=== PATIENT | female | born 1935 | race Caucasian/White ===

== ENCOUNTER 2016-09-11 18:26 | Observation (INO) | payer OTHER ==
[2016-09-11 18:55] VITALS: BMI 25.0
--- NOTE | 2016-09-11 19:15 | PDOC ---
History of Present Illness - General History Source: Patient Exam Limitations: No Limitations - History of Present Illness Initial Comments: 09/11/16 19:37 The patient is a 81 year old female, with a significant past medical history of HTN who presents to the emergency department with constipation for about 2 days. The patient notes being unable to pass a bowel movement the past 2 days. She also notes having a decreased appetite. She denies recent fevers, chills, headache or dizziness. She denies recent nausea, vomit, or diarrhea. She denies recent dysuria, frequency, urgency or hematuria. She denies recent chest pain or shortness of breath. PAST MEDICAL HISTORY: See HPI PAST SURGICAL HISTORY: No significant history. FAMILY HISTORY: No pertinent history. SOCIAL HISTORY: Patient lives with family and is employed. MEDICATIONS: Reviewed. ALLERGIES: As per nursing notes. ROS General: No fevers or chills, no weakness, no weight loss HEENT: No change in vision. No sore throat. No ear pain CardioVascular: No chest pain or shortness of breath Respiratory:No cough, or wheezing. Gastrointestinal: + constipation. No nausea, vomiting, or diarrhea. No rectal bleeding Genitourinary: No dysuria, hematuria, or frequency Musculoskeletal: No joint or muscle pain or swelling Neurologic: No headache, vertigo, dizziness or loss of consciousness Psychiatric: No depression Skin: No rashes or easy bruising Endocrine: no increased thirst or abnormal weight change Allergic: no skin or latex allergy All other systems reviewed and normal Exam: General: Well-nourished well-developed individual, no acute distress HEENT: Throat: Normal, tonsils normal, no erythema or exudate Neck: Supple, no meningeal signs, no lymphadenopathy Eyes: Pupils equal reactive and round, extraocular motion intact Chest: Nontender to palpation Cardiac: S1-S2 normal, regular rate and rhythm, no murmurs rubs or gallops Respiratory: Lungs clear to auscultation bilateral Abdomen: Slightly distended. Soft, normal bowel sounds, nontender to palpation diffusely Extremities: Warm, dry, no cyanosis, clubbing, or edema Skin: No rashes Neuro: Alert and oriented x3, nonfocal exam, grossly intact, normal gait Psych: Normal mood and affect <Tyson Jorgensen - Last Filed: 09/11/16 19:37> - History of Present Illness Initial Comments: 09/11/16 22:54 A portion of this note was documented by scribe services under my direction. I have reviewed the details of the note, within reason, and agree with the documentation. The case summary and management plan written by me. Procedure note disimpacted Patient was disimpacted manually with a moderate amount of stool removed 09/12/16 00:15 Patient had soap suds emena X2 with minimal results. Patient will be admitted to an observation bed overnight for furthur laxatives and management. Discussed with Dr. Morataya <Yuko Perales I - Last Filed: 09/12/16 00:19> - General Chief Complaint: Constipation Stated Complaint: CONSTIPATION Time Seen by Provider: 09/11/16 19:14 Past History <Tyson Jorgensen - Last Filed: 09/11/16 19:37> - Past Medical History HTN: Yes - Psycho/Social/Smoking Cessation Hx Anxiety: No Suicidal Ideation: No Smoking History: Never smoked Have you smoked in the past 12 months: No Information on smoking cessation initiated: No Hx Alcohol Use: No Drug/Substance Use Hx: No Substance Use Type: None <Yuko Perales I - Last Filed: 09/12/16 00:19> - Past Medical History Allergies/Adverse Reactions: Allergies Allergy/AdvReac Type Severity Reaction Status Date / Time Penicillins Allergy Verified 09/11/16 18:28 Home Medications: Ambulatory Orders Nifedipine 09/11/16 *Physical Exam - Vital Signs Last Vital Signs Temp Pulse Resp BP Pulse Ox 98.3 F 78 20 134/57 96 09/11/16 18:27 09/11/16 18:27 09/11/16 18:27 09/11/16 18:27 09/11/16 18:27 <Tyson Jorgensen - Last Filed: 09/11/16 19:37> - Vital Signs Last Vital Signs Temp Pulse Resp BP Pulse Ox 98.3 F 78 20 134/57 96 09/11/16 18:27 09/11/16 18:27 09/11/16 18:27 09/11/16 18:27 09/11/16 18:27 <Yuko Perales I - Last Filed: 09/12/16 00:19> ED Treatment Course - LABORATORY CBC & Chemistry Diagram: 09/11/16 23:20 09/11/16 23:20 <Yuko Perales I - Last Filed: 09/12/16 00:19> *DC/Admit/Observation/Transfer - Attestations Scribe Attestion: 09/11/16 19:38 Documentation prepared by Tyson Jorgensen, acting as medical charge entry specialist for Yuko Perales MD. <Tyson Jorgensen - Last Filed: 09/11/16 19:37> - Discharge Dispostion Admit: Yes <Yuko Perales I - Last Filed: 09/12/16 00:19> Diagnosis at time of Disposition: Impaction of colon Constipation Qualifiers: Constipation type: unspecified constipation type Qualified Code(s): K59.00 - Constipation, unspecified - Referrals Referrals: Jassi Gifford [Primary Care Provider] -
[2016-09-11 23:34] LABS: BASOPHIL 0.5 % (0-2.0); EOSINOPHIL 0.8 % (0-4.5); MCHC 33.1 g/dl (32.0-36.0); MEAN CELL VOLUME 90.6 fl (80-96); NEUTROPHILS 67.7 % (42.8-82.8); PLATELET COUNT 219 K/MM3 (134-434); RDW 13.2 % (11.6-15.6); WHITE BLOOD COUNT 8.7 K/mm3 (4.0-10.8)
[2016-09-11 23:44] LABS: ALBUMIN 3.8 g/dl (3.5-5.0); ALK PHOS 54 U/L (32-92); ANION GAP 9 (8-16); BILIRUBIN,TOTAL 0.6 mg/dl (0.2-1.0); CALCIUM 9.1 mg/dl (8.4-10.2); CO2 27 mmol/L (22-28); CREATININE 0.7 mg/dl (0.6-1.3); GLUCOSE,RANDOM 94 mg/dl (74-106); SGOT/AST 19 U/L (10-42); SGPT/ALT 13 U/L (10-40); TOT PROT 6.8 g/dl (6.4-8.3)
[2016-09-12] MEDS ORDERED: LACTULOSE 20 GM/30 ML UDC (FOR ORAL USE ONLY) PO PRN (00:17)
[2016-09-12] MEDS ORDERED: DOCUSATE SODIUM 100 MG CAPSULE (FP) PO PRN (00:20)
[2016-09-12] MEDS ORDERED: MAGNESIUM CITRATE 300 ML BOTTLE ONE (00:20)
[2016-09-12] MEDS ORDERED: LACTULOSE 20 GM/30 ML UDC (FOR ORAL USE ONLY) PO ONE (00:21)
[2016-09-12] MEDS ORDERED: MAGNESIUM CITRATE 300 ML BOTTLE PO ONE (00:28)
[2016-09-12] MEDS ORDERED: LACTULOSE 20 GM/30 ML UDC (FOR ORAL USE ONLY) ONE (00:33)
[2016-09-12] MEDS ORDERED: ONDANSETRON 4 MG/2 ML VIAL IVPUSH PRN (06:17)
--- NOTE | 2016-09-12 08:56 | HP ---
[id number] 81 y/o female with a past medical history of hypertension. patient is a poor historian. She reports nausea, decreased appetitie and constipation for the past 3 days. patient denies any abdominal pain or fever. ER course was notable for: (1) xray flat and upright: constipation (2) digital disimpaction perfomed by ED physician (3) mag citrate and lactulose given in ED with no relief Recent Travel: none PAST MEDICAL HISTORY: hypertension PAST SURGICAL HISTORY: none Social History: pt is retired, reports she is homeless and she lives in a hotel Smoking: none Alcohol: none Drugs: none Family History: Allergies Penicillins Allergy (Verified 09/11/16 18:28) acid food allergy Adverse Reaction (Uncoded 09/12/16 07:06) anesthesia Adverse Reaction (Uncoded 09/12/16 07:06) rubber Adverse Reaction (Uncoded 09/12/16 07:06) HOME MEDICATIONS: Home Medications Medication Instructions Recorded Nifedipine 30 mg PO 09/11/16 REVIEW OF SYSTEMS CONSTITUTIONAL: Absent: fever, chills, diaphoresis, generalized weakness, malaise, loss of appetite, weight change HEENT: Absent: rhinorrhea, nasal congestion, throat pain, throat swelling, difficulty swallowing, mouth swelling, ear pain, eye pain, visual changes CARDIOVASCULAR: Absent: chest pain, syncope, palpitations, irregular heart rate, lightheadedness , peripheral edema RESPIRATORY: Absent: cough, shortness of breath, dyspnea with exertion, orthopnea, wheezing, stridor, hemoptysis GASTROINTESTINAL: Present: nausea, constipation Absent: abdominal pain, abdominal distension vomiting, diarrhea,, melena, hematochezia GENITOURINARY: Absent: dysuria, frequency, urgency, hesitancy, hematuria, flank pain, genital pain MUSCULOSKELETAL: Absent: myalgia, arthralgia, joint swelling, back pain, neck pain SKIN: Absent: rash, itching, pallor HEMATOLOGIC/IMMUNOLOGIC: Absent: easy bleeding, easy bruising, lymphadenopathy, frequent infections ENDOCRINE: Absent: unexplained weight gain, unexplained weight loss, heat intolerance, cold intolerance NEUROLOGIC: Absent: headache, focal weakness or paresthesias, dizziness, unsteady gait, seizure, mental status changes, bladder or bowel incontinence PSYCHIATRIC: Absent: anxiety, depression, suicidal or homicidal ideation, hallucinations. PHYSICAL EXAMINATION Vital Signs - 24 hr 09/12/16 09/12/16 09/12/16 01:55 01:57 06:00 Temperature 97.9 F 97.9 F Pulse Rate 75 64 Pulse Rate [ 61 Right Radial] Respiratory 20 15 18 Rate Blood Pressure 131/59 133/55 Blood Pressure 122/53 [Left Arm] O2 Sat by Pulse 99 94 L Oximetry (%) 09/12/16 08:35 Temperature Pulse Rate Pulse Rate [ Right Radial] Respiratory 18 Rate Blood Pressure Blood Pressure [Left Arm] O2 Sat by Pulse 94 L Oximetry (%) GENERAL: Awake, alert, and fully oriented, in no acute distress. HEAD: Normal with no signs of trauma. EYES: Pupils equal, round and reactive to light, extraocular movements intact, sclera anicteric, conjunctiva clear. No lid lag. EARS, NOSE, THROAT: Ears normal, nares patent, oropharynx clear without exudates. Moist mucous membranes. NECK: Normal range of motion, supple without lymphadenopathy, JVD, or masses. LUNGS: Breath sounds equal, clear to auscultation bilaterally. No wheezes, and no crackles. No accessory muscle use. HEART: Regular rate and rhythm, normal S1 and S2 without murmur, rub or gallop. ABDOMEN: Soft, diffuse abdominal tenderness distended positive bowel sounds in all 4 quadrants, no guarding, no rebound, no masses. No hepatomegaly or splenomegaly. MUSCULOSKELETAL: Normal range of motion at all joints. No bony deformities or tenderness. No CVA tenderness. UPPER EXTREMITIES: 2+ pulses, warm, well-perfused. No cyanosis. No clubbing. No peripheral edema. LOWER EXTREMITIES: 2+ pulses, warm, well-perfused. No calf tenderness. No peripheral edema. NEUROLOGICAL: Cranial nerves II-XII intact. Normal speech. Normal gait. PSYCHIATRIC: Cooperative. Good eye contact. Appropriate mood and affect. SKIN: Warm, dry, normal turgor, no rashes or lesions noted, normal capillary refill. ASSESSMENT/PLAN: 1) GI constipation - xray of abdomen reviewed, patient reports small "pellet like" bowel movement, repeat xray completed, ileus versus obstruction noted, CT scan of abdomen and pelvis without contrast ordered - npo until ct scan is resulted - Appreciate input of surgery 2) hypertension - continued nifedpine home dose - b/p well controlled F/E/N - npo - IVF 1/2ns w/20meq KCI @ 75ml/hr ppx - oob - scd dispo: requires observation Visit type - Emergency Visit Emergency Visit: Yes ED Registration Date: 09/12/16 Care time: The patient presented to the Emergency Department on the above date and was hospitalized for further evaluation of their emergent condition. - New Patient This patient is new to me today: Yes Date on this admission: 09/12/16 - Critical Care Critical Care patient: No
[2016-09-12] MEDS ORDERED: PEG3350/SOD SULF,BICARB,CL/KCL 4,000 ML SOLN.RECON PO ONE (09:30)
[2016-09-12] MEDS ORDERED: NIFEDIPINE 30 MG PO SCH (10:00)
[2016-09-12] MEDS ORDERED: NIFEdipine E.R. 30 MG TABLET (FP) PO SCH ×2 (10:00→22:00)
--- NOTE | 2016-09-12 12:57 | EKG ---
Test Reason : Blood Pressure : / mmHG Vent. Rate : 059 BPM Atrial Rate : 059 BPM P-R Int : 142 ms QRS Dur : 094 ms QT Int : 412 ms P-R-T Axes : 043 -20 017 degrees QTc Int : 407 ms SINUS BRADYCARDIA POOR R WAVE PROGRESSION NO PREVIOUS ECGS AVAILABLE Confirmed by DEMRACO DE PAZ MD ([id number]) on 09/12/2016 12:56:44 PM Referred By: Confirmed By:DEMARCO DE PAZ MD
[2016-09-12] MEDS: RANITIDINE HCL 150 MG TABLET (FP) PO SCH (13:00)
[2016-09-13 08:43] LABS: BASOPHIL 0.7 % (0-2.0); EOSINOPHIL 2.5 % (0-4.5); MCH 30.2 pg (25.7-33.7); MEAN CELL VOLUME 91.6 fl (80-96); MEAN PLT VOLUME 9.4 fl (7.5-11.1); PLATELET COUNT 174 K/MM3 (134-434); RDW 12.9 % (11.6-15.6); WHITE BLOOD COUNT 7.4 K/mm3 (4.0-10.8)
[2016-09-13 08:45] LABS: ALBUMIN 3.3 g/dl (3.5-5.0); ALK PHOS 49 U/L (32-92); ANION GAP 7 (8-16); BILIRUBIN,TOTAL 0.8 mg/dl (0.2-1.0); CALCIUM 8.6 mg/dl (8.4-10.2); CO2 30 mmol/L (22-28); CREATININE 0.7 mg/dl (0.6-1.3); GLUCOSE,RANDOM 86 mg/dl (74-106); SGOT/AST 18 U/L (10-42); SGPT/ALT 13 U/L (10-40); TOT PROT 5.7 g/dl (6.4-8.3)
--- NOTE | 2016-09-13 09:05 | CONSULT ---
Consult Consult Specialty:: surgery Reason for Consultation:: abd pain - History of Present Illness Chief Complaint: abd pain History of Present Illness: pt c/o couple days abd pain. pt also c/o rectal pain and pelvic pain. no BM for a couple days. no N/V. - History Source History Provided By: Patient, Family Member (spoke with daughter who is RN who lives in [place]) Limitations to Obtaining History: No Limitations - Past Medical History Cardio/Vascular: Yes: HTN ...: No - Past Surgical History Past Surgical History: Yes: Hysterectomy - Alcohol/Substance Use Hx Alcohol Use: No - Smoking History Smoking history: Never smoked Have you smoked in the past 12 months: No Home Medications - Allergies Allergies/Adverse Reactions: Allergies Allergy/AdvReac Type Severity Reaction Status Date / Time Penicillins Allergy Verified 09/11/16 18:28 acid food allergy AdvReac Uncoded 09/12/16 07:06 anesthesia AdvReac Uncoded 09/12/16 07:06 rubber AdvReac Uncoded 09/12/16 07:06 - Home Medications Home Medications: Ambulatory Orders Nifedipine 30 mg PO 09/11/16 Family Disease History - Family Disease History Family History: Unremarkable Review of Systems - Review of Systems Constitutional: denies: Chills, Fever Eyes: denies: Blind Spots, Blurred Vision HENT: denies: Difficult Swallowing, Ear Discharge Neck: denies: Decreased ROM, Lumps Cardiovascular: denies: Chest Pain, Edema Respiratory: denies: Exercise Intolerance, SOB Gastrointestinal: reports: Abdominal Pain, Constipation Genitourinary: denies: Burning, Discharge Breasts: denies: Pain, Skin Changes Musculoskeletal: denies: Back Pain, Crepitus Integumentary: denies: Blister, Bruising Neurological: denies: Change in LOC, Change in Speech Endocrine: denies: Excessive Sweating, Flushing Hematology/Lymphatic: denies: Easily Bruised, Excessive Bleeding Psychiatric: denies: Altered Sleep Pattern, Anxiety Physical Exam Vital Signs: Vital Signs Temperature 97.7 F 09/13/16 06:00 Pulse Rate 71 09/13/16 06:00 Respiratory Rate 09/13/16 06:00 Blood Pressure 131/53 09/13/16 06:00 O2 Sat by Pulse Oximetry (%) 95 09/13/16 06:16 Constitutional: Yes: No Distress, Calm Eyes: Yes: Conjunctiva Clear, EOM Intact HENT: Yes: Atraumatic, Normocephalic Neck: Yes: Supple, Trachea Midline Cardiovascular: Yes: Regular Rate and Rhythm Respiratory: Yes: Regular, CTA Bilaterally Gastrointestinal: Yes: Soft. No: Distention, Tenderness ...Rectal Exam: Yes: Other (normal. soft small amount of stool in rectal vault. no impaction.) Renal/: No: CVA Tenderness - Left, CVA Tenderness - Right Breast(s): No: Nipple Inversion, Skin Changes Musculoskeletal: No: Joint Stiffness, Joint Swelling Extremities: No: Calf Tenderness, Erythema Integumentary: No: Erythema, Rash Neurological: Yes: Alert, Oriented Psychiatric: Yes: Alert, Oriented Labs: CBC, BMP 09/13/16 07:30 09/13/16 07:30 Imaging - Results X-ray: Report Reviewed Cat Scan: Report Reviewed, Image Reviewed Problem List - Problems (1) Constipation Assessment/Plan: recommended CT. CT results show no obvious mass or obstruction recommend laxatives and consider outpt colonoscopy. Code(s): K59.00 - CONSTIPATION, UNSPECIFIED Qualifiers: Constipation type: unspecified constipation type Qualified Code(s): K59.00 - Constipation, unspecified
[2016-09-13] MEDS: RANITIDINE HCL 150 MG TABLET (FP) PO SCH (10:00)
--- NOTE | 2016-09-13 10:21 | PN ---
Progress Note, Physician Chief Complaint: none History of Present Illness: comfort clears. she is having alot of BM with golytely. no abd pain. +hungry. - Current Medication List Current Medications: Active Medications Docusate Sodium (Colace -) 100 mg PO Q8H PRN PRN Reason: CONSTIPATION Nifedipine (Procardia Xl -) 30 mg PO HS [facility] Last Admin: 09/12/16 22:13 Dose: 30 mg Ondansetron HCl (Zofran Injection) 4 mg IVPUSH Q6H PRN PRN Reason: NAUSEA AND/OR VOMITING Last Admin: 09/12/16 06:38 Dose: 4 mg Ranitidine HCl (Zantac -) 150 mg PO DAILY [facility] Last Admin: 09/12/16 13:00 Dose: 150 mg - Objective Vital Signs: Vital Signs Temperature 97.7 F 09/13/16 06:00 Pulse Rate 71 09/13/16 06:00 Respiratory Rate 17 09/13/16 06:00 Blood Pressure 131/53 09/13/16 06:00 O2 Sat by Pulse Oximetry (%) 95 09/13/16 06:16 Constitutional: Yes: No Distress, Calm Eyes: Yes: Conjunctiva Clear, EOM Intact HENT: Yes: Atraumatic, Normocephalic Neck: Yes: Supple, Trachea Midline Cardiovascular: Yes: Regular Rate and Rhythm Respiratory: Yes: Regular, CTA Bilaterally Gastrointestinal: Yes: Soft. No: Distention, Tenderness Genitourinary: No: CVA Tenderness - Left, CVA Tenderness - Right Musculoskeletal: No: Joint Stiffness, Joint Swelling Extremities: No: Calf Tenderness, Erythema Integumentary: No: Erythema, Rash Neurological: Yes: Alert, Oriented Psychiatric: Yes: Alert, Oriented Labs: CBC, BMP 09/13/16 07:30 09/13/16 07:30 Problem List - Problems (1) Constipation Assessment/Plan: doing well adv diet reconsult prn consider outpt colonoscopy Code(s): K59.00 - CONSTIPATION, UNSPECIFIED Qualifiers: Constipation type: unspecified constipation type Qualified Code(s): K59.00 - Constipation, unspecified
--- NOTE | 2016-09-13 11:08 | PN ---
[id number]. Requesting discharge. OBJECTIVE: Vital Signs Period Temp Pulse Resp BP Sys/Velásquez Pulse Ox Last 24 Hr 97.7 F-98.1 F 67-72 16-18 107-139/52-61 95-96 GENERAL: The patient is awake, alert, and fully oriented, in no acute distress. HEAD: Normal with no signs of trauma. EYES: PERRL, extraocular movements intact, sclera anicteric, conjunctiva clear. No ptosis. ENT: Ears normal, nares patent, oropharynx clear without exudates, moist mucous membranes. NECK: Trachea midline, full range of motion, supple. LUNGS: Breath sounds equal, clear to auscultation bilaterally, no wheezes, no crackles, no accessory muscle use. HEART: Regular rate and rhythm, S1, S2 without murmur, rub or gallop. ABDOMEN: Soft, nontender, nondistended, normoactive bowel sounds, no guarding, no rebound, no hepatosplenomegaly, no masses. passing flatus during exam. EXTREMITIES: 2+ pulses, warm, well-perfused, no edema. NEUROLOGICAL: Cranial nerves II through XII grossly intact. Normal speech, gait not observed. PSYCH: Normal mood, normal affect. SKIN: Warm, dry, normal turgor, no rashes or lesions noted Laboratory Results - last 24 hr 09/13/16 09/13/16 07:30 07:30 WBC 7.4 RBC 3.78 Hgb 11.4 D Hct 34.6 MCV 91.6 MCHC 33.0 RDW 12.9 Plt Count 174 D MPV 9.4 D Neutrophils % 50.0 D Lymphocytes % 38.7 D Monocytes % 8.1 Eosinophils % 2.5 D Basophils % 0.7 Sodium 141 Potassium 4.6 Chloride 104 Carbon Dioxide 30 H Anion Gap 7 L BUN 12 Creatinine 0.7 Creat Clearance w eGFR > 60 Random Glucose 86 Calcium 8.6 Total Bilirubin 0.8 D AST 18 ALT 13 Alkaline Phosphatase 49 Total Protein 5.7 L Albumin 3.3 L Active Medications Generic Name Dose Route Start Last Admin Trade Name Freq PRN Reason Stop Dose Admin Docusate Sodium 100 mg 09/12/16 00:20 Colace - PO Q8H PRN CONSTIPATION Nifedipine 30 mg 09/12/16 22:00 09/12/16 22:13 Procardia Xl - PO 30 mg HS YASMINE Administration Ondansetron HCl 4 mg 09/12/16 06:17 09/12/16 06:38 Zofran Injection IVPUSH 4 mg Q6H PRN Administration NAUSEA AND/OR VOMITING Ranitidine HCl 150 mg 09/12/16 12:00 09/12/16 13:00 Zantac - PO 150 mg DAILY YASMINE Administration ASSESSMENT/PLAN: A: This is a 81 yo woman with h/o HTN who presented for care with c/o no BM since . The patient responded well to Golytely having 6 watery BM overnight. Abd SNTND. Normoactive BS. Read of CT per MD Babb- Proximal colonic distention without obvious etiology. P: GI -6 watery BM after Golytely -followed by surgery Hon -outpatient colonoscopy HTN -well controlled -continue nifedipine PPX -continue ranitidine -OOB F/E/N -advance diet as tolerated Dispo: No longer requires admission- will d/c. Discussion had with patient about assisted living facility. Patient adamantly refused any assisted living situation. Visit type - Emergency Visit Emergency Visit: Yes ED Registration Date: 09/12/16 Care time: The patient presented to the Emergency Department on the above date and was hospitalized for further evaluation of their emergent condition. - New Patient This patient is new to me today: Yes Date on this admission: 09/20/16 - Critical Care Critical Care patient: No - Discharge Referral Referred to [facility] No
--- NOTE | 2016-09-13 11:28 | DS ---
[id number]. Requesting discharge. OBJECTIVE: Vital Signs Period Temp Pulse Resp BP Sys/Velásquez Pulse Ox Last 24 Hr 97.7 F-98.1 F 67-72 16-18 107-139/52-61 95-96 PHYSICAL EXAM GENERAL: The patient is awake, alert, and fully oriented, in no acute distress. HEAD: Normal with no signs of trauma. EYES: PERRL, extraocular movements intact, sclera anicteric, conjunctiva clear. No ptosis. ENT: Ears normal, nares patent, oropharynx clear without exudates, moist mucous membranes. NECK: Trachea midline, full range of motion, supple. LUNGS: Breath sounds equal, clear to auscultation bilaterally, no wheezes, no crackles, no accessory muscle use. HEART: Regular rate and rhythm, S1, S2 without murmur, rub or gallop. ABDOMEN: Soft, nontender, nondistended, normoactive bowel sounds, no guarding, no rebound, no hepatosplenomegaly, no masses. passing flatus during exam. EXTREMITIES: 2+ pulses, warm, well-perfused, no edema. NEUROLOGICAL: Cranial nerves II through XII grossly intact. Normal speech, gait not observed. PSYCH: Normal mood, normal affect. SKIN: Warm, dry, normal turgor, no rashes or lesions noted LABS Laboratory Results - last 24 hr 09/13/16 09/13/16 07:30 07:30 WBC 7.4 RBC 3.78 Hgb 11.4 D Hct 34.6 MCV 91.6 MCHC 33.0 RDW 12.9 Plt Count 174 D MPV 9.4 D Neutrophils % 50.0 D Lymphocytes % 38.7 D Monocytes % 8.1 Eosinophils % 2.5 D Basophils % 0.7 Sodium 141 Potassium 4.6 Chloride 104 Carbon Dioxide 30 H Anion Gap 7 L BUN 12 Creatinine 0.7 Creat Clearance w eGFR > 60 Random Glucose 86 Calcium 8.6 Total Bilirubin 0.8 D AST 18 ALT 13 Alkaline Phosphatase 49 Total Protein 5.7 L Albumin 3.3 L HOSPITAL COURSE: Date of Admission:09/12/16 Date of Discharge: 09/13/16 Minutes to complete discharge: 25 Discharge Summary Reason For Visit: CONSTIPATION/IMPACTION OF COLON Current Active Problems Constipation (Acute) Impaction of colon (Acute) Hospital Course: Initial hospital course: The patient is a 81 year old female, with a significant past medical history of HTN who presented to the emergency department with constipation for about 2 days. The patient noted being unable to pass a bowel movement since 09/10/16. She also noted having decreased appetite. She denied recent fevers, chills, headache or dizziness. She denied recent nausea, vomit, or diarrhea. She denied recent dysuria, frequency, urgency or hematuria. She denied recent chest pain or shortness of breath. Hospital course by problem: GI constipation - xray of abdomen reviewed, patient reports small "pellet like" bowel movement, repeat xray completed, ileus versus obstruction noted, CT scan of abdomen and pelvis without contrast- per MD Babb- Proximal colonic distention without obvious etiology. - kept NPO until CT resulted then started on clear diet. Advanced to regular diet for lunch which she tolerated well. - Appreciate input of surgery- cleared by Dr. Seymour with recommendation for outpatient colonoscopy. HTN - continued nifedpine home dose - b/p well controlled Condition: Good - Instructions Diet, Activity, Other Instructions: Please follow up with Dr. Gifford within 2 weeks to schedule a colonoscopy. Eat a well balanced HIGH FIBER diet. Keep hydrated by drinking at least 8 glasses of water every day. Start taking Colace 100mg 3x every day to soften your stool. Start taking senna 2 tablets every night with dinner. Thank you for choosing us to provide your care. Referrals: Jassi Gifford [Primary Care Provider] - 2 Weeks Disposition: HOME - Home Medications Comprehensive Discharge Medication List: Ambulatory Orders Nifedipine 30 mg PO 09/11/16 Colace 100 mg PO 09/13/16 Senna 2 tabs PO 09/13/16 This patient is new to me today: Yes Date on this admission: 09/20/16 Emergency Visit: Yes ED Registration Date: 09/12/16 Care time: The patient presented to the Emergency Department on the above date and was hospitalized for further evaluation of their emergent condition. Critical Care patient: No - Discharge Referral Referred to [facility] No
[2016-09-13 14:28] VITALS: BP 121/49; PULSE 65; TEMP 97.6
== END 2016-09-13 19:20 | disposition home or self-care (01) ==
LOC: SUPCPDRO 18:26 → FER 18:26 → FM/S 09-12 01:40 → INTOOBSV 09-12 01:40 → FM/S 09-12 02:50
PROVIDERS: ADMIT Internal Medicine; ATTEND Nurse Practitioner Family
PROC: 3E033GC Introduction of Other Therapeutic Substance into Peripheral Vein, Percutaneous Approach (ICD-10-PCS; principal; 2016-09-12)
DX: K56.49 Other impaction of intestine (principal); K59.00 Constipation, unspecified; I10 Essential (primary) hypertension; Z88.0 Allergy status to penicillin; Z91.040 Latex allergy status
CPT/HCPCS: 36415; 74020-TC; 74176-TC; 80053; 85025; 93005; 99284-25; G0378

== ENCOUNTER 2020-04-28 06:07 | Observation (INO) | payer OTHER ==
[2020-04-28 08:34] LABS: BASO % 0.8 % (0-2.0); EOS % 1.9 % (0-4.5); HEMATOCRIT 34.5 % (32.4-45.2); LYMPH % 35.5 % (8-40); MCH 30.3 pg (25.7-33.7); MCHC 31.8 g/dl (32.0-36.0); MEAN CELL VOLUME 95.5 fl (80-96); MEAN PLT VOLUME 8.7 fl (7.5-11.1); MONO % 9.9 % (3.8-10.2); NEUT % 51.9 % (42.8-82.8); PLATELET COUNT 180 K/MM3 (134-434); RBC 3.62 M/mm3 (3.60-5.2); RDW 14.6 % (11.6-15.6); WHITE BLOOD COUNT 5.8 K/mm3 (4.0-10.0)
[2020-04-28 08:38] LABS: INR 0.98 (0.83-1.09); PROTHROMBIN TIME (PATIENT) 12.1 SEC (9.7-13.0)
[2020-04-28 08:41] LABS: ACTIVATED PTT 31.8 SECONDS (25.2-36.5)
[2020-04-28 08:42] LABS: CHLORIDE 107 mmol/L (98-107); POTASSIUM 4.3 mmol/L (3.5-5.1); SODIUM 140 mmol/L (136-145)
[2020-04-28 08:44] LABS: ALBUMIN 3.8 g/dl (3.4-5.0); CALCIUM 9.2 mg/dL (8.5-10.1)
[2020-04-28 08:45] LABS: ANION GAP 7 MMOL/L (8-16); BLOOD UREA NITROGEN 28.1 mg/dL (7-18); CO2 26 mmol/L (21-32); GLUCOSE,RANDOM 83 mg/dL (74-106)
[2020-04-28 08:48] LABS: CREATININE 0.9 mg/dL (0.55-1.3); SGOT/AST 18 U/L (15-37); SGPT/ALT 15 U/L (13-61)
[2020-04-28 08:50] LABS: BILIRUBIN,TOTAL 0.4 mg/dL (0.2-1); TOT PROT 7.1 g/dl (6.4-8.2)
[2020-04-28 08:51] LABS: ALK PHOS 56 U/L (45-117)
[2020-04-28 13:50] LABS: EPI CELLS 26 /uL (0-25.1); HYALINE CASTS 2 /uL (0-3.1); URINE APPEARANCE CLEAR; URINE BILIRUBIN NEGATIVE (NEGATIVE); URINE COLOR YELLOW; URINE GLUCOSE (UA) NEGATIVE (NEGATIVE); URINE KETONE NEGATIVE (NEGATIVE); URINE LEUK ESTERASE 1+ (NEGATIVE); URINE NITRITE POSITIVE (NEGATIVE); URINE PROTEIN NEGATIVE (NEGATIVE); URINE RBC 2 /uL (0-23.9); URINE UROBILINOGEN 0.2 mg/dL (0.2-1.0); URINE WBC 26 /uL (0-25.8)
[2020-04-28] MEDS ORDERED: ACETAMINOPHEN 325 MG TABLET (FP) PO SCH (15:00)
[2020-04-28 15:55] LABS: URINE BACTERIA 1284 /uL (0-1359)
[2020-04-28] MEDS ORDERED: LACTATED RINGERS SOLUTION 1,000 ML/1,000 ML INFUS.BAG IV SCH ×2 (18:30→20:38)
[2020-04-28 18:31] VITALS: BMI 23.8
[2020-04-28] MEDS ORDERED: DEXTROSE 5%-WATER 100 ML IVPB ONE (20:35)
[2020-04-28] MEDS ORDERED: DOXYCYCLINE HYCLATE 100 MG VIAL ONE (20:35)
[2020-04-28] MEDS: DOXYCYCLINE INJECTION 100 MG in DEXTROSE 5%-WATER 100 ML IVPB SCH (21:46)
[2020-04-28] MEDS: LIDOCAINE PATCH REMOVAL MC SCH (21:46)
[2020-04-28] MEDS: DOCUSATE SODIUM 100 MG CAPSULE (FP) PO SCH (21:46)
[2020-04-28] MEDS: HEPARIN NA (PORCINE) 5,000 UNITS/ML 1ML VIAL SQ SCH (21:46)
[2020-04-28] MEDS ORDERED: QUEtiapine FUMARATE 25 MG TABLET PO ONE (23:00)
[2020-04-29 07:06] LABS: HEMATOCRIT 36.3 % (32.4-45.2); HEMOGLOBIN 11.4 GM/dL (10.7-15.3); MCH 30.3 pg (25.7-33.7); MCHC 31.6 g/dl (32.0-36.0); MEAN CELL VOLUME 95.9 fl (80-96); MEAN PLT VOLUME 9.2 fl (7.5-11.1); PLATELET COUNT 176 K/MM3 (134-434); RBC 3.78 M/mm3 (3.60-5.2); RDW 14.5 % (11.6-15.6)
[2020-04-29 07:18] LABS: POTASSIUM 4.3 mmol/L (3.5-5.1)
[2020-04-29 07:30] LABS: BLOOD UREA NITROGEN 23.4 mg/dL (7-18); CALCIUM 8.8 mg/dL (8.5-10.1)
[2020-04-29 07:33] LABS: CREATININE 0.8 mg/dL (0.55-1.3)
[2020-04-29] MEDS ORDERED: DOXYCYCLINE HYCLATE 100 MG VIAL ONE ×2 (09:35→21:07)
[2020-04-29] MEDS ORDERED: DEXTROSE 5%-WATER 100 ML IVPB ONE ×2 (09:35→21:07)
[2020-04-29] MEDS: DOXYCYCLINE INJECTION 100 MG in DEXTROSE 5%-WATER 100 ML IVPB SCH ×2 (09:39→21:17)
[2020-04-29] MEDS: CITALOPRAM HYDROBROMIDE 10 MG TABLET PO SCH (09:41)
[2020-04-29] MEDS: HEPARIN NA (PORCINE) 5,000 UNITS/ML 1ML VIAL SQ SCH ×2 (09:41→21:20)
[2020-04-29] MEDS: DOCUSATE SODIUM 100 MG CAPSULE (FP) PO SCH ×2 (09:41→21:20)
[2020-04-29] MEDS: CHOLECALCIFEROL (VIT D3) 400 UNIT (10 MCG) TABLET PO SCH (09:41)
[2020-04-29] MEDS: LIDOCAINE 5% TOPICAL PATCH TP SCH (09:41)
[2020-04-29] MEDS: FERROUS SO4 325 MG TABLET (FP) PO SCH (09:41)
[2020-04-29] MEDS: CYANOCOBALAMIN 1,000 MCG TABLET (FP) PO SCH (09:41)
[2020-04-29] MEDS ORDERED: DICLOFENAC SODIUM 20 GM TP SCH (10:00)
[2020-04-29] MEDS ORDERED: CEFTRIAXONE 1 GM in DEXTROSE 5%-WATER - 50 ML IVPB SCH (10:00)
[2020-04-29] MEDS ORDERED: QUEtiapine FUMARATE 25 MG TABLET PO PRN (17:24)
[2020-04-29] MEDS: LIDOCAINE PATCH REMOVAL MC SCH (21:17)
[2020-04-30 06:59] LABS: EOS % 3.3 % (0-4.5); HEMATOCRIT 33.8 % (32.4-45.2); HEMOGLOBIN 11.1 GM/dL (10.7-15.3); LYMPH % 34.9 % (8-40); MCH 31.5 pg (25.7-33.7); MEAN CELL VOLUME 95.4 fl (80-96); MEAN PLT VOLUME 9.2 fl (7.5-11.1); MONO % 10.2 % (3.8-10.2); NEUT % 50.6 % (42.8-82.8); PLATELET COUNT 178 K/MM3 (134-434); RBC 3.54 M/mm3 (3.60-5.2); RDW 14.4 % (11.6-15.6); WHITE BLOOD COUNT 6.2 K/mm3 (4.0-10.0)
[2020-04-30 07:10] LABS: POTASSIUM 4.3 mmol/L (3.5-5.1)
[2020-04-30 07:17] LABS: CALCIUM 8.7 mg/dL (8.5-10.1)
[2020-04-30] MEDS ORDERED: DOXYCYCLINE HYCLATE 100 MG VIAL ONE ×2 (09:28→21:06)
[2020-04-30] MEDS ORDERED: DEXTROSE 5%-WATER 100 ML IVPB ONE ×2 (09:29→21:06)
[2020-04-30] MEDS: CYANOCOBALAMIN 1,000 MCG TABLET (FP) PO SCH (09:35)
[2020-04-30] MEDS: CITALOPRAM HYDROBROMIDE 10 MG TABLET PO SCH (09:35)
[2020-04-30] MEDS: DOXYCYCLINE INJECTION 100 MG in DEXTROSE 5%-WATER 100 ML IVPB SCH ×2 (09:35→21:13)
[2020-04-30] MEDS: FERROUS SO4 325 MG TABLET (FP) PO SCH (09:35)
[2020-04-30] MEDS: CHOLECALCIFEROL (VIT D3) 400 UNIT (10 MCG) TABLET PO SCH (09:35)
[2020-04-30] MEDS: DOCUSATE SODIUM 100 MG CAPSULE (FP) PO SCH ×2 (09:35→23:23)
[2020-04-30] MEDS: HEPARIN NA (PORCINE) 5,000 UNITS/ML 1ML VIAL SQ SCH ×2 (09:36→23:23)
[2020-04-30] MEDS: LIDOCAINE 5% TOPICAL PATCH TP SCH (09:36)
[2020-04-30] MEDS ORDERED: QUEtiapine FUMARATE 25 MG TABLET PO ONE (19:23)
[2020-04-30] MEDS ORDERED: LACTATED RINGERS SOLUTION 1,000 ML/1,000 ML INFUS.BAG IV SCH (23:30)
[2020-05-01] MEDS: LIDOCAINE PATCH REMOVAL MC SCH ×2 (01:17→22:28)
[2020-05-01 07:01] LABS: BASO % 0.7 % (0-2.0); EOS % 4.9 % (0-4.5); HEMATOCRIT 34.8 % (32.4-45.2); HEMOGLOBIN 11.4 GM/dL (10.7-15.3); LYMPH % 42.1 % (8-40); MCH 31.5 pg (25.7-33.7); MCHC 32.9 g/dl (32.0-36.0); MEAN CELL VOLUME 95.9 fl (80-96); MEAN PLT VOLUME 9.3 fl (7.5-11.1); MONO % 11.2 % (3.8-10.2); NEUT % 41.1 % (42.8-82.8); PLATELET COUNT 185 K/MM3 (134-434); RBC 3.63 M/mm3 (3.60-5.2); RDW 14.4 % (11.6-15.6); WHITE BLOOD COUNT 7.4 K/mm3 (4.0-10.0)
[2020-05-01 07:14] LABS: POTASSIUM 4.3 mmol/L (3.5-5.1)
[2020-05-01 07:17] LABS: CALCIUM 8.6 mg/dL (8.5-10.1)
[2020-05-01 07:21] LABS: CREATININE 0.9 mg/dL (0.55-1.3)
[2020-05-01] MEDS ORDERED: DEXTROSE 5%-WATER 100 ML IVPB ONE ×2 (09:28→21:51)
[2020-05-01] MEDS ORDERED: DOXYCYCLINE HYCLATE 100 MG VIAL ONE ×2 (09:28→21:51)
[2020-05-01] MEDS: DOXYCYCLINE INJECTION 100 MG in DEXTROSE 5%-WATER 100 ML IVPB SCH ×2 (09:36→21:57)
[2020-05-01] MEDS: CYANOCOBALAMIN 1,000 MCG TABLET (FP) PO SCH (09:36)
[2020-05-01] MEDS: FERROUS SO4 325 MG TABLET (FP) PO SCH (09:36)
[2020-05-01] MEDS: CHOLECALCIFEROL (VIT D3) 400 UNIT (10 MCG) TABLET PO SCH (09:37)
[2020-05-01] MEDS: HEPARIN NA (PORCINE) 5,000 UNITS/ML 1ML VIAL SQ SCH ×2 (09:37→22:04)
[2020-05-01] MEDS: DOCUSATE SODIUM 100 MG CAPSULE (FP) PO SCH ×2 (09:37→22:04)
[2020-05-01] MEDS: CITALOPRAM HYDROBROMIDE 10 MG TABLET PO SCH (09:37)
[2020-05-01] MEDS: LIDOCAINE 5% TOPICAL PATCH TP SCH (09:37)
[2020-05-01] MEDS ORDERED: QUEtiapine FUMARATE 25 MG TABLET PO ONE (17:00)
[2020-05-02] MEDS ORDERED: DOXYCYCLINE HYCLATE 100 MG VIAL ONE (09:33)
[2020-05-02] MEDS ORDERED: DEXTROSE 5%-WATER 100 ML IVPB ONE (09:34)
[2020-05-02] MEDS: DOXYCYCLINE INJECTION 100 MG in DEXTROSE 5%-WATER 100 ML IVPB SCH (09:47)
[2020-05-02] MEDS: LIDOCAINE 5% TOPICAL PATCH TP SCH (09:48)
[2020-05-02] MEDS: DOCUSATE SODIUM 100 MG CAPSULE (FP) PO SCH (09:49)
[2020-05-02] MEDS: CYANOCOBALAMIN 1,000 MCG TABLET (FP) PO SCH (09:49)
[2020-05-02] MEDS: HEPARIN NA (PORCINE) 5,000 UNITS/ML 1ML VIAL SQ SCH (09:49)
[2020-05-02] MEDS: CHOLECALCIFEROL (VIT D3) 400 UNIT (10 MCG) TABLET PO SCH (09:49)
[2020-05-02] MEDS: FERROUS SO4 325 MG TABLET (FP) PO SCH (09:49)
[2020-05-02] MEDS: CITALOPRAM HYDROBROMIDE 10 MG TABLET PO SCH (09:49)
[2020-05-02] MEDS ORDERED: ASPIRIN COATED 81 MG TABLET.EC PO SCH (10:00)
[2020-05-02] MEDS ORDERED: SODIUM CHLORIDE 250 ML IV STA (10:10)
[2020-05-02 11:55] LABS: BASO % 1.2 % (0-2.0); EOS % 3.3 % (0-4.5); HEMATOCRIT 33.8 % (32.4-45.2); LYMPH % 33.3 % (8-40); MCH 30.7 pg (25.7-33.7); MCHC 32.4 g/dl (32.0-36.0); MEAN CELL VOLUME 94.9 fl (80-96); MEAN PLT VOLUME 8.9 fl (7.5-11.1); MONO % 7.9 % (3.8-10.2); NEUT % 54.3 % (42.8-82.8); PLATELET COUNT 182 K/MM3 (134-434); RBC 3.56 M/mm3 (3.60-5.2); RDW 14.1 % (11.6-15.6); WHITE BLOOD COUNT 5.6 K/mm3 (4.0-10.0)
[2020-05-02 12:10] LABS: POTASSIUM 4.5 mmol/L (3.5-5.1)
[2020-05-02 12:15] LABS: ALBUMIN 3.3 g/dl (3.4-5.0)
[2020-05-02 12:17] LABS: CALCIUM 8.9 mg/dL (8.5-10.1); MAGNESIUM 1.8 mg/dL (1.8-2.4)
[2020-05-02 12:18] LABS: CREATININE 0.8 mg/dL (0.55-1.3); PHOSPHOROUS 4.4 mg/dL (2.5-4.9)
[2020-05-02 12:20] LABS: BILIRUBIN,TOTAL 0.4 mg/dL (0.2-1); TOT PROT 6.5 g/dl (6.4-8.2)
[2020-05-02 14:10] VITALS: BP 126/53; PULSE 64; TEMP 98.4
[2020-05-02] MEDS ORDERED: QUEtiapine FUMARATE 25 MG TABLET PO ONE (16:13)
[2020-05-02] MEDS ORDERED: ATORVASTATIN CA 20 MG TABLET (FP) PO SCH (22:00)
== END 2020-05-02 19:21 ==
LOC: JER 06:07 → JERBED 14:33 → INTOOBSV 14:33 → J4S 17:45
PROVIDERS: ADMIT Family Medicine; ATTEND Internal Medicine
PROC: 3E03329 Introduction of Other Anti-infective into Peripheral Vein, Percutaneous Approach (ICD-10-PCS; principal; 2020-04-28)
PROC: 3E023GC Introduction of Other Therapeutic Substance into Muscle, Percutaneous Approach (ICD-10-PCS; 2020-04-28)
PROC: 3E0337Z Introduction of Electrolytic and Water Balance Substance into Peripheral Vein, Percutaneous Approach (ICD-10-PCS; 2020-04-28)
DX: S00.03XA Contusion of scalp, initial encounter (principal); R55 Syncope and collapse; W18.39XA Other fall on same level, initial encounter; Y93.89 Activity, other specified; Y92.099 Unspecified place in other non-institutional residence as the place of occurrence of the external cause; K21.9 Gastro-esophageal reflux disease without esophagitis; I10 Essential (primary) hypertension; M19.90 Unspecified osteoarthritis, unspecified site; F03.90 Unspecified dementia, unspecified severity, without behavioral disturbance, psychotic disturbance, mood disturbance, and anxiety; F32.9 Major depressive disorder, single episode, unspecified; R45.1 Restlessness and agitation; M54.9 Dorsalgia, unspecified; Z88.0 Allergy status to penicillin; Z91.040 Latex allergy status; Z88.8 Allergy status to other drugs, medicaments and biological substances; E86.0 Dehydration; N39.0 Urinary tract infection, site not specified; Z23 Encounter for immunization
CPT/HCPCS: 36415; 70450-TC; 71045-TC-FY; 72125-TC; 72131-TC; 73562-TC-LT-FY; 73562-TC-RT-FY; 73590-TC-LT-FY; 80048; 80053; 81003; 82550; 83735; 84100; 84484; 85025; 85027; 85610; 85730; 87040; 87086; 87186; 93005; 93010; 93880-TC; 96361; 96365; 96372; 97116-GP; 99285-25; C9803; G0378; J1644; U0003

== ENCOUNTER 2020-08-23 11:25 | Emergency (ER) | payer OTHER ==
[2020-08-23 11:56] VITALS: BMI 22.9
[2020-08-23 15:27] LABS: BASO % 1.1 % (0-2.0); EOS % 1.9 % (0-4.5); HEMATOCRIT 36.5 % (32.4-45.2); HEMOGLOBIN 12.1 GM/dL (10.7-15.3); LYMPH % 29.6 % (8-40); MCH 30.9 pg (25.7-33.7); MCHC 33.1 g/dl (32.0-36.0); MEAN CELL VOLUME 93.2 fl (80-96); MONO % 7.5 % (3.8-10.2); NEUT % 59.9 % (42.8-82.8); RBC 3.91 M/mm3 (3.60-5.2); RDW 14.2 % (11.6-15.6); WHITE BLOOD COUNT 8.2 K/mm3 (4.0-10.0)
[2020-08-23 15:36] LABS: MEAN PLT VOLUME 9.4 fl (7.5-11.1)
[2020-08-23 15:40] LABS: CHLORIDE 105 mmol/L (98-107); SODIUM 140 mmol/L (136-145)
[2020-08-23 15:42] LABS: ANION GAP 4 MMOL/L (8-16); CALCIUM 9.6 mg/dL (8.5-10.1); CO2 30 mmol/L (21-32); GLUCOSE,RANDOM 78 mg/dL (74-106)
[2020-08-23 15:43] LABS: ALBUMIN 3.6 g/dl (3.4-5.0); BLOOD UREA NITROGEN 22.9 mg/dL (7-18)
[2020-08-23 15:46] LABS: CREATININE 0.8 mg/dL (0.55-1.3); SGOT/AST 34 U/L (15-37); SGPT/ALT 22 U/L (13-61)
[2020-08-23 15:47] LABS: BILIRUBIN,TOTAL 0.5 mg/dL (0.2-1); TOT PROT 7.2 g/dl (6.4-8.2)
[2020-08-23 15:48] LABS: ALK PHOS 56 U/L (45-117)
[2020-08-23] MEDS ORDERED: HALOPERIDOL LACTATE 5 MG/ML IM ONE (16:24)
[2020-08-23] MEDS ORDERED: HALOPERIDOL LACTATE 5 MG/ML ONE (16:25)
[2020-08-23 16:43] LABS: PLATELET ESTIMATE DECREASED
[2020-08-23 16:45] LABS: PLATELET COUNT 145 K/MM3 (134-434)
[2020-08-23 19:27] VITALS: TEMP 98.9
[2020-08-24 02:29] VITALS: BP 142/82; PULSE 92
== END 2020-08-24 02:59 ==
LOC: JER 11:25
PROC: 3E033GC Introduction of Other Therapeutic Substance into Peripheral Vein, Percutaneous Approach (ICD-10-PCS; principal; 2020-08-23)
DX: S09.90XA Unspecified injury of head, initial encounter (principal); M54.2 Cervicalgia
CPT/HCPCS: 36415; 70450-TC; 71045-TC-FY; 72125-TC; 80053; 82550; 84484; 85025; 99285-25